=== PATIENT | female | born 1950 | race Caucasian/White ===

== ENCOUNTER 2022-08-19 11:18 | Inpatient (IN) | payer OTHER ==
[2022-08-19 11:49] VITALS: BMI 27.6
[2022-08-19 12:22] LABS: BASO % 0.6 % (0-2.0); EOS % 5.6 % (0-4.5); HEMATOCRIT 34.2 % (32.4-45.2); HEMOGLOBIN 10.8 GM/dL (10.7-15.3); LYMPH % 15.5 % (8-40); MCH 23.2 pg (25.7-33.7); MCHC 31.5 g/dl (32.0-36.0); MEAN CELL VOLUME 73.7 fl (80-96); MEAN PLT VOLUME 7.9 fl (7.5-11.1); MONO % 5.8 % (3.8-10.2); NEUT % 72.5 % (42.8-82.8); PLATELET COUNT 428 10^3/uL (134-434); RBC 4.64 M/mm3 (3.60-5.2); RDW 18.6 % (11.6-15.6); WHITE BLOOD COUNT 10.6 K/mm3 (4.0-10.0)
[2022-08-19 12:28] LABS: INR 1.13 (0.83-1.09); PROTHROMBIN TIME (PATIENT) 13.1 SEC (9.7-13.0)
[2022-08-19 12:31] LABS: ACTIVATED PTT 31.4 SECONDS (25.2-36.5)
[2022-08-19 12:41] LABS: POTASSIUM 4.6 mmol/L (3.5-5.1)
[2022-08-19 12:43] LABS: BLOOD UREA NITROGEN 15.9 mg/dL (7-18); CALCIUM 9.5 mg/dL (8.5-10.1)
[2022-08-19 12:44] LABS: ALBUMIN 3.8 g/dl (3.4-5.0)
[2022-08-19 12:47] LABS: CREATININE 0.7 mg/dL (0.55-1.3)
[2022-08-19 12:48] LABS: BILIRUBIN,TOTAL 0.5 mg/dL (0.2-1); TOT PROT 6.7 g/dl (6.4-8.2)
[2022-08-19] MEDS ORDERED: PIPERACILLIN/TAZOB 4.5 GM 4.5 GM in DEXTROSE 5%-WATER 100 ML IVPB ONE (15:51)
[2022-08-19] MEDS ORDERED: VANCOMYCIN 1 GM in D5W (PRE-DOCKED) 1,000 MG/250 ML (RESTRICTED TO ID ONLY IVPB ONE (15:51)
[2022-08-19] MEDS ORDERED: PIPERACILLIN/TAZOB 4.5 GM 4.5 GM/100 ML BAG IVPB ONE (16:01)
[2022-08-19] MEDS ORDERED: ACETAMINOPHEN 500 MG TABLET (FP) PO ONE (16:13)
[2022-08-19] MEDS ORDERED: ACETAMINOPHEN 325 MG TABLET (FP) ONE (16:26)
[2022-08-19] MEDS ORDERED: VANCOMYCIN/WATER FOR INJ (PEG) 1,000 MG/200 ML BAG IVPB ONE (16:26)
[2022-08-19] MEDS: HEPARIN NA (PORCINE) 5,000 UNITS/ML 1ML VIAL SQ SCH (22:29)
[2022-08-19] MEDS: ATORVASTATIN CA 40 MG TABLET (FP) PO SCH (22:29)
[2022-08-19] MEDS: TICAGRELOR 90 MG TABLET PO SCH (22:29)
[2022-08-20] MEDS ORDERED: ACETAMINOPHEN 325 MG TABLET (FP) ONE (01:34)
[2022-08-20] MEDS: PIPERACILLIN/TAZOB 3.375 GM 3.375 GM in DEXTROSE 5%-WATER - 50 ML IVPB SCH ×5 (01:39→21:57)
[2022-08-20] MEDS ORDERED: ACETAMINOPHEN 325 MG TABLET (FP) PO ONE (01:45)
[2022-08-20 09:12] LABS: BASO % 0.9 % (0-2.0); EOS % 11.7 % (0-4.5); HEMATOCRIT 32.3 % (32.4-45.2); HEMOGLOBIN 10.4 GM/dL (10.7-15.3); LYMPH % 28.6 % (8-40); MCH 23.5 pg (25.7-33.7); MCHC 32.1 g/dl (32.0-36.0); MEAN CELL VOLUME 73.3 fl (80-96); MEAN PLT VOLUME 8.2 fl (7.5-11.1); MONO % 7.2 % (3.8-10.2); NEUT % 51.6 % (42.8-82.8); PLATELET COUNT 376 10^3/uL (134-434); RBC 4.41 M/mm3 (3.60-5.2); RDW 17.9 % (11.6-15.6); WHITE BLOOD COUNT 8.3 K/mm3 (4.0-10.0)
[2022-08-20 09:31] LABS: POTASSIUM 4.1 mmol/L (3.5-5.1)
[2022-08-20 09:39] LABS: CALCIUM 9.3 mg/dL (8.5-10.1)
[2022-08-20 09:40] LABS: ALBUMIN 3.6 g/dl (3.4-5.0); BLOOD UREA NITROGEN 18.3 mg/dL (7-18)
[2022-08-20 09:41] LABS: BILIRUBIN,TOTAL 0.4 mg/dL (0.2-1); TOT PROT 6.5 g/dl (6.4-8.2)
[2022-08-20 09:43] LABS: CREATININE 0.6 mg/dL (0.55-1.3)
[2022-08-20] MEDS ORDERED: BENAZEPRIL 10 MG PO SCH (10:00)
[2022-08-20] MEDS ORDERED: [UNRECOGNIZED DRUG - OTHER] PO SCH (10:00)
[2022-08-20] MEDS ORDERED: AMLODIPINE PO SCH (10:00)
[2022-08-20] MEDS: HEPARIN NA (PORCINE) 5,000 UNITS/ML 1ML VIAL SQ SCH ×2 (10:28→21:59)
[2022-08-20] MEDS: amLODIPine BESYLATE 5 MG TABLET (FP) PO SCH (10:28)
[2022-08-20] MEDS: TICAGRELOR 90 MG TABLET PO SCH ×2 (10:28→22:00)
[2022-08-20] MEDS: LISINOPRIL 10 MG TABLET PO SCH (10:28)
[2022-08-20] MEDS: ATENOLOL 50 MG TABLET (FP) PO SCH (10:28)
[2022-08-20] MEDS ORDERED: hydrALAZINE HCL 20 MG/ML VIAL ONE (16:17)
[2022-08-20] MEDS: ATORVASTATIN CA 40 MG TABLET (FP) PO SCH (21:55)
[2022-08-20] MEDS: APIXABAN 5 MG TABLET PO SCH (21:56)
[2022-08-21] MEDS: PIPERACILLIN/TAZOB 3.375 GM 3.375 GM in DEXTROSE 5%-WATER - 50 ML IVPB SCH ×3 (02:04→17:15)
[2022-08-21] MEDS: amLODIPine BESYLATE 5 MG TABLET (FP) PO SCH (12:26)
[2022-08-21] MEDS: LISINOPRIL 10 MG TABLET PO SCH (12:27)
[2022-08-21] MEDS: APIXABAN 5 MG TABLET PO SCH ×2 (12:27→22:07)
[2022-08-21] MEDS: TICAGRELOR 90 MG TABLET PO SCH ×2 (12:27→22:07)
[2022-08-21] MEDS: ATENOLOL 50 MG TABLET (FP) PO SCH (12:27)
[2022-08-21] MEDS: HEPARIN NA (PORCINE) 5,000 UNITS/ML 1ML VIAL SQ SCH ×3 (12:27→22:11)
[2022-08-21] MEDS ORDERED: ACETAMINOPHEN 325 MG TABLET (FP) PO PRN (18:46)
[2022-08-21] MEDS: ACETAMINOPHEN 325 MG TABLET (FP) PO PRN (20:00)
[2022-08-21] MEDS: ATORVASTATIN CA 40 MG TABLET (FP) PO SCH (22:08)
[2022-08-22] MEDS: PIPERACILLIN/TAZOB 3.375 GM 3.375 GM in DEXTROSE 5%-WATER - 50 ML IVPB SCH ×2 (01:18→09:56)
[2022-08-22 03:40] VITALS: RESP 18
[2022-08-22] MEDS: APIXABAN 5 MG TABLET PO SCH ×2 (09:56→21:29)
[2022-08-22] MEDS: amLODIPine BESYLATE 5 MG TABLET (FP) PO SCH (09:56)
[2022-08-22] MEDS: LISINOPRIL 10 MG TABLET PO SCH (09:56)
[2022-08-22] MEDS: ATENOLOL 50 MG TABLET (FP) PO SCH (09:56)
[2022-08-22] MEDS: HEPARIN NA (PORCINE) 5,000 UNITS/ML 1ML VIAL SQ SCH ×3 (09:56→21:34)
[2022-08-22] MEDS: TICAGRELOR 90 MG TABLET PO SCH ×2 (09:57→21:29)
[2022-08-22] MEDS: ACETAMINOPHEN 325 MG TABLET (FP) PO PRN ×3 (10:13→23:30)
[2022-08-22] MEDS: AMOX TR/POT CLAV 500MG/125MG TABLETS (FP) PO SCH (16:32)
[2022-08-22] MEDS: ATORVASTATIN CA 40 MG TABLET (FP) PO SCH (21:29)
[2022-08-23] MEDS: ACETAMINOPHEN 325 MG TABLET (FP) PO PRN (09:31)
[2022-08-23] MEDS: ATENOLOL 50 MG TABLET (FP) PO SCH (09:32)
[2022-08-23] MEDS: LISINOPRIL 10 MG TABLET PO SCH (09:32)
[2022-08-23] MEDS: AMOX TR/POT CLAV 500MG/125MG TABLETS (FP) PO SCH (09:32)
[2022-08-23] MEDS: APIXABAN 5 MG TABLET PO SCH (09:32)
[2022-08-23] MEDS: amLODIPine BESYLATE 5 MG TABLET (FP) PO SCH (09:32)
[2022-08-23] MEDS: HEPARIN NA (PORCINE) 5,000 UNITS/ML 1ML VIAL SQ SCH (09:32)
[2022-08-23] MEDS: TICAGRELOR 90 MG TABLET PO SCH (09:32)
[2022-08-23 11:42] VITALS: BP 147/82; PULSE 79; TEMP 97.6
== END 2022-08-23 13:15 | disposition home or self-care (01) | DRG 312 ==
LOC: JER 11:18 → JERBED 15:59 → J4W 18:45
PROVIDERS: ADMIT Family Medicine; ATTEND Family Medicine
DX: R55 Syncope and collapse (principal); C34.90 Malignant neoplasm of unspecified part of unspecified bronchus or lung; I10 Essential (primary) hypertension; I25.10 Atherosclerotic heart disease of native coronary artery without angina pectoris; E11.9 Type 2 diabetes mellitus without complications; J44.9 Chronic obstructive pulmonary disease, unspecified; J45.909 Unspecified asthma, uncomplicated; I48.0 Paroxysmal atrial fibrillation; R93.89 Abnormal findings on diagnostic imaging of other specified body structures; I65.29 Occlusion and stenosis of unspecified carotid artery; Z95.1 Presence of aortocoronary bypass graft; F17.210 Nicotine dependence, cigarettes, uncomplicated
CPT/HCPCS: 0241U-QW; 36415; 70450-TC; 70498-TC; 71275-TC; 72125-TC; 80053; 82962; 83036; 84443; 84484; 85025; 85610; 85730; 87040; 87899; 93005; 93010; 93306-TC; 93880-TC; 95816; 99285-25; J1644; Q9967

== ENCOUNTER 2022-10-21 16:58 | Emergency (ER) | payer OTHER ==
[2022-10-21 17:30] VITALS: BMI 30.3
[2022-10-21 21:54] LABS: BASO % 0.7 % (0-2.0); EOS % 5.3 % (0-4.5); HEMATOCRIT 29.3 % (32.4-45.2); HEMOGLOBIN 9.3 GM/dL (10.7-15.3); LYMPH % 20.1 % (8-40); MCH 22.2 pg (25.7-33.7); MCHC 31.6 g/dl (32.0-36.0); MEAN CELL VOLUME 70.2 fl (80-96); MEAN PLT VOLUME 8.2 fl (7.5-11.1); MONO % 8.8 % (3.8-10.2); NEUT % 65.1 % (42.8-82.8); PLATELET COUNT 344 10^3/uL (134-434); RBC 4.18 M/mm3 (3.60-5.2); RDW 19.8 % (11.6-15.6); WHITE BLOOD COUNT 8.5 K/mm3 (4.0-10.0)
[2022-10-21 22:04] LABS: INR 1.23 (0.83-1.09); PROTHROMBIN TIME (PATIENT) 14.2 SEC (9.7-13.0)
[2022-10-21 22:07] LABS: ACTIVATED PTT 31.4 SECONDS (25.2-36.5)
[2022-10-21 22:17] LABS: CHLORIDE 106 mmol/L (98-107); SODIUM 138 mmol/L (136-145)
[2022-10-21 22:19] LABS: CALCIUM 8.8 mg/dL (8.5-10.1)
[2022-10-21 22:20] LABS: ALBUMIN 3.4 g/dl (3.4-5.0); BLOOD UREA NITROGEN 16.8 mg/dL (7-18); CO2 26 mmol/L (21-32); GLUCOSE,RANDOM 209 mg/dL (74-106)
[2022-10-21 22:24] LABS: CREATININE 0.6 mg/dL (0.55-1.3); SGOT/AST 47 U/L (15-37); SGPT/ALT 23 U/L (13-61); TOT PROT 6.4 g/dl (6.4-8.2)
[2022-10-21 22:25] LABS: BILIRUBIN,TOTAL 0.2 mg/dL (0.2-1)
[2022-10-21 22:26] LABS: ALK PHOS 152 U/L (45-117)
[2022-10-21 22:28] LABS: ANION GAP 5 MMOL/L (8-16); ANISOCYTOSIS 2+; MACROCYTOSIS 0; OVALOCYTE 1+; POTASSIUM 6.1 mmol/L (3.5-5.1); TEAR DROP CELLS 1+
[2022-10-21] MEDS ORDERED: ACETAMINOPHEN 325 MG TABLET (FP) PO ONE (23:42)
[2022-10-21] MEDS ORDERED: ACETAMINOPHEN 325 MG TABLET (FP) ONE (23:44)
[2022-10-22 00:18] LABS: POTASSIUM 4.4 mmol/L (3.5-5.1)
[2022-10-22 00:19] LABS: CALCIUM 8.5 mg/dL (8.5-10.1)
[2022-10-22 00:21] LABS: BLOOD UREA NITROGEN 16.4 mg/dL (7-18)
[2022-10-22 00:23] LABS: CREATININE 0.6 mg/dL (0.55-1.3)
[2022-10-22] MEDS ORDERED: METOCLOPRAMIDE HCL INJECTION 10 MG/2 ML VIAL IVPB ONE (01:41)
[2022-10-22] MEDS ORDERED: METOCLOPRAMIDE HCL INJECTION 10 MG/2 ML VIAL ONE (01:55)
[2022-10-22 06:23] VITALS: BP 95/61; PULSE 94
[2022-10-22] MEDS ORDERED: FACTOR XA,INACTIVATED - BOLUS 400 MG/40 ML VIAL IVPB ONE (06:35)
[2022-10-22] MEDS ORDERED: SODIUM CHLORIDE 50 ML IVPB ONE ×2 (06:51→08:36)
[2022-10-22 06:59] VITALS: RESP 16; TEMP 98
[2022-10-22] MEDS ORDERED: FACTOR XA,INACTIVATED-ZHZO 480 MG/48 ML VIAL IVPB ONE (07:01)
== END 2022-10-22 07:01 | disposition short-term general hospital (02) ==
LOC: JER 16:58
PROC: 3E033GC Introduction of Other Therapeutic Substance into Peripheral Vein, Percutaneous Approach (ICD-10-PCS; principal; 2022-10-22)
DX: T82.838A Hemorrhage due to vascular prosthetic devices, implants and grafts, initial encounter (principal); R22.1 Localized swelling, mass and lump, neck; R51.9 Headache, unspecified
CPT/HCPCS: 36415; 70498-TC; 76536-TC; 80048; 80053; 85025; 85610; 85730; 86850; 86900; 86901; 96374; 99285-25; Q9967

== ENCOUNTER 2022-11-19 23:13 | Observation (INO) | payer OTHER ==
[2022-11-20 00:49] LABS: HEMATOCRIT 31.7 % (32.4-45.2); HEMOGLOBIN 9.7 GM/dL (10.7-15.3); MCH 22.4 pg (25.7-33.7); MCHC 30.7 g/dl (32.0-36.0); MEAN CELL VOLUME 72.8 fl (80-96); PLATELET COUNT 362 10^3/uL (134-434); RBC 4.35 M/mm3 (3.60-5.2); RDW 24.8 % (11.6-15.6)
[2022-11-20 01:11] LABS: POTASSIUM 4.9 mmol/L (3.5-5.1)
[2022-11-20 01:13] LABS: BLOOD UREA NITROGEN 16.2 mg/dL (7-18); CALCIUM 8.8 mg/dL (8.5-10.1)
[2022-11-20 01:14] LABS: ALBUMIN 3.8 g/dl (3.4-5.0)
[2022-11-20 01:17] LABS: CREATININE 0.6 mg/dL (0.55-1.3)
[2022-11-20 01:18] LABS: BILIRUBIN,TOTAL 0.2 mg/dL (0.2-1); TOT PROT 6.7 g/dl (6.4-8.2)
[2022-11-20] MEDS ORDERED: DOCUSATE SODIUM 100 MG CAPSULE (FP) PO PRN (02:12)
[2022-11-20] MEDS ORDERED: ACETAMINOPHEN 325 MG TABLET (FP) PO PRN (02:12)
[2022-11-20] MEDS ORDERED: ACETAMINOPHEN 1000 MG/100 ML BAG IVPB ONE (02:55)
[2022-11-20 03:48] VITALS: BMI 29.9
[2022-11-20 04:17] LABS: INR 1.04 (0.83-1.09); PROTHROMBIN TIME (PATIENT) 12.1 SEC (9.7-13.0)
[2022-11-20 04:20] LABS: ACTIVATED PTT 32.8 SECONDS (25.2-36.5)
[2022-11-20 04:22] LABS: MAGNESIUM 1.7 mg/dL (1.8-2.4)
[2022-11-20 04:25] LABS: PHOSPHOROUS 3.7 mg/dL (2.5-4.9)
[2022-11-20] MEDS: INSULIN SLIDING SCALE (NOVOLOG) 1 VIAL SQ SCH ×2 (06:26→16:20)
[2022-11-20 06:49] VITALS: RESP 20
[2022-11-20] MEDS ORDERED: MAGNESIUM SULF 50% (8.12 MEQ/2 ML-1 GM VIAL) IVPB ONE (07:45)
[2022-11-20] MEDS ORDERED: SODIUM PHOSPHATE - 15 MM in SODIUM CHLORIDE 250 ML IVPB ONE (07:45)
[2022-11-20] MEDS ORDERED: MAGNESIUM 1GM/D5W - 1 GM/100 ML IVPB IVPB ONE ×2 (08:00→16:45)
[2022-11-20 09:44] VITALS: TEMP 98
[2022-11-20] MEDS ORDERED: ASPIRIN 81 MG CHEWABLE TABLETS PO SCH (10:00)
[2022-11-20] MEDS ORDERED: GABAPENTIN 100 MG CAPSULE PO SCH (10:00)
[2022-11-20] MEDS ORDERED: ATENOLOL 50 MG TABLET (FP) PO SCH (10:00)
[2022-11-20 14:36] VITALS: BP 141/62; PULSE 78
[2022-11-20] MEDS ORDERED: ATORVASTATIN CA 40 MG TABLET (FP) PO SCH (22:00)
== END 2022-11-20 18:36 | disposition home or self-care (01) ==
LOC: FER 23:13 → FM/S 11-20 01:36
PROVIDERS: ADMIT Internal Medicine; ATTEND Internal Medicine
PROC: 3E033NZ Introduction of Analgesics, Hypnotics, Sedatives into Peripheral Vein, Percutaneous Approach (ICD-10-PCS; principal; 2022-11-20)
DX: I11.9 Hypertensive heart disease without heart failure (principal); E78.00 Pure hypercholesterolemia, unspecified; E11.9 Type 2 diabetes mellitus without complications; Z95.1 Presence of aortocoronary bypass graft; R06.02 Shortness of breath
CPT/HCPCS: 36415; 71275-TC; 80053; 82550; 82962; 83735; 84100; 84484; 85027; 85610; 85730; 93005; 93306-TC; 96374; 99285-25; G0378; Q9967